=== PATIENT | female | born 1985 | race Caucasian/White ===

== ENCOUNTER 2018-10-23 20:10 | Emergency (ER) | payer MEDICAID ==
[~2018-10-23] VITALS: Ht 175.3 cm; Wt 118.2 kg
[2018-10-23 20:48] VITALS: Ht 175.3 cm; Wt 118.2 kg
[2018-10-23 21:17] LABS: BASOPHILS 0.2 % (0-2); EOSINOPHILS 2.8 % (0-7); HEMATOCRIT 41.8 % (36.0-48.0); HEMOGLOBIN 14.6 g/dL (12-16); IMMATURE GRANULOCYTES 0.6 % (0-5); LYMPHOCYTES 25.5 % (15-50); MCH 30.6 pg (26.0-34.0); MCHC 34.9 g/dL (31.0-37.0); MCV 87.6 fL (80.0-100.0); MEAN PLATELET VOLUME 10.9 fL (7.4-10.4); MONOCYTES 6.3 % (2-11); NEUTROPHILS 64.6 % (40-80); PLATELET COUNT 184 10x3/uL (130-400); RBC 4.77 10x6/uL (4.00-5.40); RDW 13.9 % (11.5-14.5); WBC 12.6 10x3/uL (4.8-10.8)
[2018-10-23 21:34] LABS: ALBUMIN 3.4 g/dL (3.4-5.0); ALKALINE PHOSPHATASE 81 U/L (46-116); ALT (SGPT) 35 U/L (10-68); BILIRUBIN - TOTAL 0.22 mg/dL (0.2-1.3); CALC OSMOLALITY 279 mosm/kg (275-300); CALCIUM 8.7 mg/dL (8.5-10.1); CARBON DIOXIDE 25.6 mmol/L (21.0-32.0); CHLORIDE - SERUM 105 mmol/L (98-107); CREATININE - SERUM 0.7 mg/dL (0.6-1.3); GLUCOSE 112 mg/dL (74-106); POTASSIUM - SERUM 3.6 mmol/L (3.5-5.1); PROTEIN - SERUM 7.3 g/dL (6.4-8.2); SODIUM 141 mmol/L (136-145); UREA NITROGEN 8 mg/dL (7-18); eGFR NON AFRICAN AMERICAN > 90 mL/min (90-120)
[2018-10-23 21:56] LABS: HCG URINE NEGATIVE (NEGATIVE)
[2018-10-23 22:00] LABS: APPEARANCE CLEAR (CLEAR); BACTERIA MODERATE /hpf (NONE SEEN); BILIRUBIN NEGATIVE (NEGATIVE); COLOR YELLOW (YELLOW); EPITHELIAL CELLS 0-5 /hpf (0-5); GLUCOSE NEGATIVE (NEGATIVE); HYALINE CAST OCC /lpf (NONE SEEN); KETONE NEGATIVE (NEGATIVE); NITRITE NEGATIVE (NEGATIVE); PROTEIN TRACE mg/dL (NEGATIVE); UROBILINOGEN NORMAL (NORMAL); WHITE CELLS - URINE 0-5 /hpf (0-5)
[2018-10-23] MEDS ORDERED: ZOFRAN8 MG PO (22:18)
[2018-10-23] MEDS ORDERED: TORADOL10 MG PO (22:18)
[2018-10-23 23:23] VITALS: BP 115/63
== END 2018-10-23 23:08 | disposition home or self-care (01) ==
LOC: D.ER 20:10
PROVIDERS: Family Medicine
DX: N92.0 Excessive and frequent menstruation with regular cycle (principal); N94.6 Dysmenorrhea, unspecified; F17.200 Nicotine dependence, unspecified, uncomplicated